=== PATIENT | male | born 1975 | race African-American/Black ===

== ENCOUNTER 2017-08-14 03:17 | Emergency (ER) | payer OTHER ==
[~2017-08-14] VITALS: Ht 167.6 cm; Wt 74.8 kg
[2017-08-14 03:35] VITALS: BP_SYST 135
[2017-08-14 03:55] VITALS: BP_SYST 135
== END 2017-08-14 03:44 ==
LOC: SED 03:17
DX: Z02.89 Encounter for other administrative examinations (principal)